=== PATIENT | male | born 1960 | race Caucasian/White ===

== ENCOUNTER → 2020-11-21 08:03 | Outpatient (CLI) | payer OTHER, SELFPAY ==
[2020-11-21] MEDS: COVID-19 VACC #1, MRNA(MOD) 100 MCG/0.5 ML VIAL IM (08:08)
== END ==
PROVIDERS: Visit Provider Internal Medicine
DX: Z23 Encounter for immunization (principal)
CPT/HCPCS: 0011A; 91301

== ENCOUNTER → 2020-12-19 08:00 | Outpatient (CLI) | payer OTHER, SELFPAY ==
[2020-12-19] MEDS: COVID-19 VACC #2, MRNA(MOD) 100 MCG/0.5 ML VIAL IM (08:04)
== END ==
PROVIDERS: Visit Provider Internal Medicine
DX: Z23 Encounter for immunization (principal)
CPT/HCPCS: 0012A; 91301

== ENCOUNTER → 2021-04-10 14:49 | Outpatient (CLI) | payer OTHER, SELFPAY ==
--- NOTE | 2021-04-10 14:59 | DI.RAD.S_ITS ---
PROCEDURE: XR KNEE LT 3V INDICATIONS: BILAT KNEE PAIN TECHNIQUE: 3 views of the knee were acquired. COMPARISON: None. FINDINGS: Bones: No fractures or dislocations. No suspicious bony lesions. Mild bilateral tricompartmental periarticular osteophyte formation. Soft tissues: Small left joint effusion. No suspicious soft tissue calcifications. IMPRESSION: Mild bilateral tricompartmental periarticular osteophyte formation. Dictated by: Jason France RR Interpreted: Kaiser Abbott MD on 04/10/2021 at 15:20 Transcribed by: HOME on 04/10/2021 at 15:21 Approved by: Kaiser Abbott M.D. on 04/10/2021 at 16:06
== END ==
PROVIDERS: PCP Internal Medicine; Referring Provider Internal Medicine; Visit Provider Internal Medicine
DX: M25.562 Pain in left knee (principal); G89.29 Other chronic pain; M25.561 Pain in right knee
CPT/HCPCS: 73562

== ENCOUNTER → 2021-10-27 07:49 | Outpatient (CLI) | payer OTHER, SELFPAY ==
[2021-10-27 09:27] LABS: Testosterone 350 ng/dL (71.8-623)
== END ==
PROVIDERS: PCP Internal Medicine; Referring Provider Urology; Visit Provider Urology
DX: N52.9 Male erectile dysfunction, unspecified (principal)
CPT/HCPCS: 36415; 84403